=== PATIENT | female | born 1995 | race Caucasian/White ===

== ENCOUNTER 2016-06-21 11:51 | Emergency (ER) | payer SELFPAY ==
[2016-06-21 12:02] VITALS: BP 119/70
--- NOTE | 2016-06-21 12:02 | ER Document Report ---
ED Medical Screen (RME) - General Chief Complaint: Sore Throat Stated Complaint: SORE THROAT Time seen by provider: 12:01 Mode of Arrival: Ambulatory Information source: Patient Notes: 20-year-old female presents to ED for sore throat runny nose and cough for 2 days. States she has not taken her temperature so does not know she's had a fever. States she's had strep before. States she has body aches. Last menstrual period 05/31/2016 I have greeted and performed a rapid initial assessment of this patient. A comprehensive ED assessment and evaluation of the patient, analysis of test results and completion of medical decision making process will be conducted by an additional ED providers. TRAVEL OUTSIDE OF THE [place] IN LAST 30 DAYS: No - Related Data Allergies/Adverse Reactions: No Known Allergies Allergy (Verified 05/07/16 11:47) Past Medical History Pulmonary Medical History: Reports: Hx Pneumonia - Immunizations Immunizations up to date: No Hx Diphtheria, Pertussis, Tetanus Vaccination: No - unsure
[2016-06-21] MEDS ORDERED: ACETAMINOPHEN 325 MG TABLET PO ONE (12:35)
--- NOTE | 2016-06-21 12:35 | ER Document Report ---
HPI - HPI Patient complains to provider of: sore throat Pain Level: 5 Context: Patient is a 20-year-old female presents emergency Department complaining of sore throat, body aches and chills for the past 2 days. She admits to difficulty swallowing but able to do so. Denies any dyspnea or shortness of breath. Denies any foul odor drainage from her throat, speech or drooling. Denies any ear pressure but admits to minor nasal congestion and pain in her neck. Otherwise she denies any other cough or chest congestion, chest pain. Tolerating by mouth without any difficulty and without any difficulty Did not have a flu vaccine this year Does not have a primary care provider Denies any past medical or past surgical history Social history significant for half pack years. Denies any alcohol or drug use Denies any allergies to medications - REPRODUCTIVE Reproductive: DENIES: : - DERM Skin Color: Normal <GINA MONZON - Last Filed: 06/21/16 12:54> Past Medical History - General Information source: Patient - Social History Smoking Status: Unknown if Ever Smoked Family History: COPD, DM, Malignancy. denies: Arthritis, CAD, CVA, Hyperlipidemia, Hypertension, Thyroid Disfunction Patient has suicidal ideation: No Patient has homicidal ideation: No Pulmonary Medical History: Reports: Hx Pneumonia Renal/ Medical History: Denies: Hx Peritoneal Dialysis - Immunizations Immunizations up to date: No Hx Diphtheria, Pertussis, Tetanus Vaccination: No - unsure <GINA MONZON - Last Filed: 06/21/16 12:54> Vertical Provider Document - CONSTITUTIONAL Agree With Documented VS: Yes Exam Limitations: No Limitations General Appearance: WD/WN, No Apparent Distress - INFECTION CONTROL TRAVEL OUTSIDE OF THE [place] IN LAST 30 DAYS: No - HEENT HEENT: Atraumatic, Normocephalic, PERRLA, Pharyngeal Exudate, Pharyngeal Tenderness, Pharyngeal Erythema. negative: Tympanic Membrane Red, Tympanic Membrane Bulging - NECK Neck: Normal Inspection, Supple - RESPIRATORY Respiratory: Breath Sounds Normal, No Respiratory Distress, Chest Non-Tender O2 Sat by Pulse Oximetry: 96 - CARDIOVASCULAR Cardiovascular: Regular Rate, Regular Rhythm, No Murmur Pulses: Normal: Radial - MUSCULOSKELETAL/EXTREMETIES Musculoskeletal/Extremeties: MAEW, FROM, Non-Tender, No Edema - NEURO Level of Consciousness: Awake, Alert, Appropriate Motor/Sensory: No Motor Deficit, No Sensory Deficit - DERM Integumentary: Warm, Dry, No Rash <GINA MONZON - Last Filed: 06/21/16 12:54> Course - Re-evaluation Re-evalutation: 06/21/16 12:54 Patient is a 20-year-old female presents emergency room complaining of sore throat for the past 2 days. Evidence of pharyngeal erythema and exudates. Rapid strep came back positive. We'll be discharged home with by mouth amoxicillin and [facility]. - Vital Signs Vital signs: Temp Pulse Resp BP Pulse Ox 98.9 F 99 18 119/70 96 06/21/16 12:02 06/21/16 12:02 06/21/16 12:02 06/21/16 12:02 06/21/16 12:02 <GINA MONZON - Last Filed: 06/21/16 12:54> - Vital Signs Vital signs: Temp Pulse Resp BP Pulse Ox 98.9 F 99 18 119/70 96 06/21/16 12:02 06/21/16 12:02 06/21/16 12:02 06/21/16 12:02 06/21/16 12:58 <ODELL CASEY - Last Filed: 06/21/16 18:02> Discharge <GINA MONZON - Last Filed: 06/21/16 12:54> <ODELL CASEY - Last Filed: 06/21/16 18:02> - Discharge Clinical Impression: Strep pharyngitis Condition: Good Disposition: HOME, SELF-CARE Instructions: Strep Throat ([facility]) Prescriptions: Amoxicillin 500 mg PO BID 10 Days Forms: Return to Work Referrals: [facility] [NO LOCAL MD] - Follow up as needed
[2016-06-21] MEDS ORDERED: AMOXICILLIN TRIHYDRATE 500 MG CAPSULE PO ONE (12:54)
== END 2016-06-21 13:02 | disposition home or self-care (01) ==
LOC: ER 11:51
DX: J02.0 Streptococcal pharyngitis (principal); R68.83 Chills (without fever); R13.10 Dysphagia, unspecified; R09.81 Nasal congestion; M54.2 Cervicalgia
CPT/HCPCS: 36415; 86308; 87880; 99283

== ENCOUNTER 2016-10-06 15:32 | Emergency (ER) | payer SELFPAY ==
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
[2016-10-06] MEDS ORDERED: HYDROCODONE/ACETAMINOPHEN 5-325 MG TABLET PO ONE (21:23)
[2016-10-06 22:20] VITALS: BP 125/63
== END 2016-10-06 22:18 | disposition home or self-care (01) ==
LOC: ER 15:32
DX: S40.011A Contusion of right shoulder, initial encounter (principal); S43.101A Unspecified dislocation of right acromioclavicular joint, initial encounter; S00.83XA Contusion of other part of head, initial encounter; M54.5 Low back pain; R51 Headache; F17.200 Nicotine dependence, unspecified, uncomplicated; Y04.8XXA Assault by other bodily force, initial encounter
CPT/HCPCS: 99284; 81025; 73030; 70486; L3650

== ENCOUNTER 2016-10-20 16:00 | Emergency (ER) | payer SELFPAY ==
[2016-10-20] MEDS ORDERED: LIDOCAINE 1% INJ-PF (10 MG/ML) 30 ML SDV INJ ONE (17:15)
[2016-10-20] MEDS ORDERED: HYDROCODONE/ACETAMINOPHEN 5-325 MG TABLET PO ONE (17:15)
--- NOTE | 2016-10-20 17:16 | ER Document Report ---
HPI - HPI Patient complains to provider of: finger laceration Onset: This afternoon Onset/Duration: Sudden Quality of pain: Sharp Pain Level: 4 Context: Patient states she was washing dishes and accidentally cut her right second finger on a knife. Patient is right-hand dominant. Associated Symptoms: Other - Finger laceration Exacerbated by: Movement Relieved by: Denies Similar symptoms previously: No Recently seen / treated by doctor: No - ROS ROS below otherwise negative: Yes Systems Reviewed and Negative: Yes All other systems reviewed and negative - NEURO Neurology: DENIES: Weakness - GASTROINTESTINAL Gastrointestinal: DENIES: Nausea - REPRODUCTIVE Reproductive: DENIES: : - MUSCULOSKELETAL Musculoskeletal: REPORTS: Extremity pain - DERM Skin Color: Normal Skin Problems: Laceration Past Medical History - General Information source: Patient - Social History Smoking Status: Current Every Day Smoker Frequency of alcohol use: None Drug Abuse: None Occupation: food mixer Family History: COPD, DM, Malignancy. denies: Arthritis, CAD, CVA, Hyperlipidemia, Hypertension, Thyroid Disfunction Pulmonary Medical History: Reports: Hx Pneumonia Renal/ Medical History: Denies: Hx Peritoneal Dialysis Surgical Hx: Negative - Immunizations Immunizations up to date: Yes Hx Diphtheria, Pertussis, Tetanus Vaccination: Yes - 2014 [facility] Provider Document - CONSTITUTIONAL Agree With Documented VS: Yes Exam Limitations: No Limitations General Appearance: WD/WN, No Apparent Distress - INFECTION CONTROL TRAVEL OUTSIDE OF THE [place] IN LAST 30 DAYS: No - HEENT HEENT: Atraumatic, Normocephalic - NECK Neck: Normal Inspection - RESPIRATORY Respiratory: No Respiratory Distress O2 Sat by Pulse Oximetry: 99 - CARDIOVASCULAR Pulses: Normal: Radial - MUSCULOSKELETAL/EXTREMETIES Musculoskeletal/Extremeties: MAEW, FROM - NEURO Level of Consciousness: Awake, Alert, Appropriate Motor/Sensory: No Motor Deficit, No Sensory Deficit Notes: no obvious tendon deficit - DERM Integumentary: Warm, Dry, Laceration - 1.2 cm lac radial aspect of r 2nd finger Course - Vital Signs Vital signs: Temp Pulse Resp BP Pulse Ox 98.2 F 87 18 127/61 H 99 10/20/16 16:13 10/20/16 16:13 10/20/16 16:13 10/20/16 16:13 10/20/16 16:13 Procedures - Laceration/Wound Repair Right 2nd digit Wound length (cm): 1.2 Wound's Depth, Shape: Irregular Laceration pre-procedure: Other - chlorhexadine Anesthetic type: 1% Lidocaine Wound explored: Clean, No foreign body removed Wound Repaired With: Sutures Suture Size/Type: 5:0, Nylon Number of Sutures: 4 Layer Closure?: No Post-procedure wound care: Sterile dressing applied Post-procedure NV exam normal: Yes Complications: No Discharge - Discharge Clinical Impression: Finger laceration Qualifiers: Encounter type: initial encounter Qualified Code(s): S61.219A - Laceration without foreign body of unspecified finger without damage to nail, initial encounter Condition: Stable Disposition: HOME, SELF-CARE Instructions: Laceration Care ([facility]), Prophylactic Antibiotic ([facility]) Additional Instructions: return as needed for any new or worsening symptoms suture removal in 9 days follow up with your primary care provider as needed for a recheck Prescriptions: Cephalexin Monohydrate [Keflex 500 mg Capsule] 500 mg PO Q6H 5 Days Hydrocodone/Acetaminophen [[place] 5-325 Tablet] 1 each PO Q4 PRN #10 tablet PRN Reason: Forms: Return to Work Referrals: [facility] [Provider Group] - Follow up as needed
[2016-10-20 18:40] VITALS: BP 125/60
== END 2016-10-20 18:22 | disposition home or self-care (01) ==
LOC: ER 16:00
PROC: 0HQFXZZ Repair Right Hand Skin, External Approach (ICD-10-PCS; principal; 2016-10-20)
DX: S61.210A Laceration without foreign body of right index finger without damage to nail, initial encounter (principal); W26.0XXA Contact with knife, initial encounter; Y93.G1 Activity, food preparation and clean up; F17.200 Nicotine dependence, unspecified, uncomplicated
CPT/HCPCS: 12001; 99282; J3490

== ENCOUNTER 2017-03-19 12:16 | Emergency (ER) | payer SELFPAY ==
[2017-03-19 12:22] VITALS: BP 119/71
[2017-03-19] MEDS ORDERED: IBUPROFEN 800 MG TABLET PO ONE (12:59)
--- NOTE | 2017-03-19 13:04 | ER Document Report ---
ED Extremity Problem, Lower - General Chief Complaint: Knee Pain Stated Complaint: FALL/KNEE PAIN Time Seen by Provider: 03/19/17 12:51 Mode of Arrival: Ambulatory Information source: Patient Notes: 21-year-old female presents to ED for complaint of left knee pain after she fell last Monday. She states she put on her friend's shoes which were much heavier went down the steps and then fell in the yard landing on her knees. There are bruises to both knees with abrasion to the left knee. She states she has been working every day but the knee feels like it is still tight. She states she has been clear that the abrasive to put bacitracin on each day but has not been putting a dressing on insulin it would heal faster. Patient states her last tetanus shot was in 2014. TRAVEL OUTSIDE OF THE [place] IN LAST 30 DAYS: No - HPI Patient complains to provider of: Injury, Pain Location: Knee - Left knee Occurred: Other - Monday Where: Home, Outdoors Onset/Duration: Persistent Quality of pain: Achy, Pressure Severity: Mild Pain Level: 1 Context: Fell Recent injury: Yes Associated symptoms: Painful ambulation Exacerbated by: Movement, Walking Relieved by: Nothing - Related Data Allergies/Adverse Reactions: No Known Allergies Allergy (Verified 03/19/17 14:01) Past Medical History - General Information source: Patient - Social History Smoking Status: Current Every Day Smoker Cigarette use (# per day): Yes - 6-8 cigarettes a day Chew tobacco use (# tins/day): No Smoking Education Provided: Yes - Less than 1 minute Frequency of alcohol use: Rare Drug Abuse: None, Marijuana Occupation: [employer] Lives with: Family Family History: COPD, DM, Hypertension, Malignancy. denies: Arthritis, CAD, CVA , Hyperlipidemia, Thyroid Disfunction Patient has suicidal ideation: No Patient has homicidal ideation: No - Past Medical History Cardiac Medical History: Reports: None Pulmonary Medical History: Reports: None EENT Medical History: Reports: None Neurological Medical History: Reports: None Endocrine Medical History: Reports: None Renal/ Medical History: Reports: None Malignancy Medical History: Reports: None GI Medical History: Reports: None Musculoskeltal Medical History: Reports None Skin Medical History: Reports None Psychiatric Medical History: Reports: None Traumatic Medical History: Reports: None Infectious Medical History: Reports: None Past Surgical History: Reports: Hx Myringotomy - Immunizations Immunizations up to date: Yes Hx Diphtheria, Pertussis, Tetanus Vaccination: Yes - 2014 Review of Systems - Review of Systems Notes: Constitutional: [PRESENT: as per HPI. ABSENT: chills, fever(s), headache(s), weight gain, weight loss] Eyes: [ABSENT: visual disturbances] Ears: [ABSENT: hearing changes] Cardiovascular: [ABSENT: chest pain, dyspnea on exertion, edema, orthropnea, palpitations] Respiratory: [ABSENT: cough, hemoptysis] Gastrointestinal: [ABSENT: abdominal pain, constipation, diarrhea, hematemesis, hematochezia, nausea, vomiting] Genitourinary: [ABSENT: dysuria, hematuria] Musculoskeletal: [ABSENT: joint swelling] pain to the bilateral knees with bruises to bilateral knees and abrasion to the left knee Integumentary: [ABSENT: rash, wounds] bruising to bilateral knees abrasion to the left knee Neurological: [ABSENT: abnormal gait, abnormal speech, confusion, dizziness, focal weakness, syncope] Psychiatric: [ABSENT: anxiety, depression, homicidal ideation, suicidal ideation ] Endocrine: [ABSENT: cold intolerance, heat intolerance, menstrual abnormalities , polydipsia, polyuria] Hematologic/Lymphatic: [ABSENT: easy bleeding, easy bruising, lymphadenopathy] PHYSICAL EXAMINATION: GENERAL: Well-appearing, well-nourished and in no acute distress. HEAD: Atraumatic, normocephalic. EYES: Pupils equal round and reactive to light, extraocular movements intact, conjunctiva are normal. ENT: Nares patent, oropharynx clear without exudates. Moist mucous membranes. NECK: Normal range of motion, supple without lymphadenopathy LUNGS: Breath sounds clear to auscultation bilaterally and equal. No wheezes rales or rhonchi. HEART: Regular rate and rhythm without murmurs ABDOMEN: Soft, nontender, nondistended abdomen. No guarding, no rebound. No masses appreciated. Female : deferred Musculoskeletal: Normal range of motion, no pitting or edema. No cyanosis. Tenderness to bilateral knees with bruising to bilateral knees and abrasion to the left knee NEUROLOGICAL: Cranial nerves grossly intact. Normal speech, normal gait. Normal sensory, motor exams PSYCH: Normal mood, normal affect. SKIN: Warm, Dry, normal turgor, no rashes or lesions noted. Bruising to bilateral knees with abrasion to the left knee Physical Exam - Vital signs Vitals: Temp Pulse Resp BP Pulse Ox 98.0 F 100 18 119/71 96 03/19/17 12:21 03/19/17 12:21 03/19/17 12:21 03/19/17 12:21 03/19/17 12:21 Course - Re-evaluation Re-evalutation: 03/19/17 13:06 X-ray left knee due to continued pain and feeling tightness to the left knee. 03/19/17 13:44 X-ray today is negative no obvious bony injuries. No evidence of swelling or edema on the x-ray no effusion. Will treat patient with ibuprofen and Dariel wrap and have patient follow-up with orthopedics for continued pain in the knee. - Vital Signs Vital signs: Temp Pulse Resp BP Pulse Ox 98.0 F 100 18 119/71 96 03/19/17 12:21 03/19/17 12:21 03/19/17 12:21 03/19/17 12:21 03/19/17 12:21 - Diagnostic Test Radiology reviewed: Image reviewed, Reports reviewed Discharge - Discharge Clinical Impression: Bilateral knee contusions, Abrasion, left knee, initial encounter Condition: Stable Disposition: HOME, SELF-CARE Instructions: Knee Exercise Program ([facility]) Additional Instructions: SUSPECTED INTERNAL KNEE INJURY: The examiner of your injured knee suspects an internal injury to the cartilage or internal ligaments. This must be further investigated by an supply chain specialist. The knee should be protected, ice packed, and elevated while awaiting your follow-up exam by the orthopedist. If there is severe swelling, severe pain, or any new symptoms while awaiting your exam, you should call the orthopedist. (If he/she is unavailable, call us or return for re-examination.) DARIEL WRAP: A compression dressing (dariel wrap) has been placed. This helps hold the area still. It limits swelling and internal bleeding. The wrap should be comfortably snug -- not tight. You should feel a sense of pressure, but not severe pain under the wrap. Unless the physician tells you otherwise, you can adjust the wrap for comfort. If the wrap causes symptoms suggesting it's too tight -- uncomfortable pressure, swelling or discoloration beyond the wrap, numbness, or severe pain - - you must loosen the wrap. If these symptoms don't resolve promptly, return for re-evaluation. ICE & ELEVATION: Apply ice packs frequently against the painful area. Many different schedules are recommended, such as "20 minutes on, 20 minutes off" or "one hour ice, two hours rest." If you need to work, you may need to go longer between ice treatments. You should plan to have the area ice packed AT LEAST one- fourth of the time. The ice should be applied over the wrap, tape, or splint, or over a layer of cloth -- not directly against the skin. Some ice bags have a built-in cloth and can be put directly on the skin. Your injured part should be elevated as much as possible over the next 48 hours. Try to keep the injury above the level of the heart. Avoid use of the injured area. Elevation and rest will decrease the swelling. USE OF [id number] IBUPROFEN: Ibuprofen (Advil, Nuprin, Medipren, Motrin IB) is a medication for fever and pain control. In addition, it has anti- inflammatory effects which may be beneficial, especially in the treatment of injuries. It's best to take ibuprofen with food. Persons with ulcer disease or allergy to aspirin should notify their physician of this before taking ibuprofen. Ibuprofen can be given every four to six hours, for a total of four doses daily. Age Pain or fever dose Antiinflammatory dose 6-8 yr 200 mg (1 tab) 200 mg (1 tab) 9-11 yr 200 mg (1 tab) 200-400 mg (1-2 tab) 11-14 yr 200-400 mg (1-2 tab) 400 mg (2 tab) 15-adult 400 mg (2 tab) 600 mg (3 tab) FOLLOW-UP CARE: If you have been referred to a physician for follow-up care, call the physician s office for an appointment as you were instructed or within the next two days. If you experience worsening or a significant change in your symptoms, notify the physician immediately or return to the Emergency Department at any time for re-evaluation. Forms: Smoking Cessation Education, Return to Work Referrals: AUGUSTIN MEDINA MD [ACTIVE STAFF] - Follow up as needed
--- NOTE | 2017-03-19 13:39 | RADIOLOGY REPORT (SQ) ---
EXAM DESCRIPTION: KNEE LEFT 4 VIEW COMPLETED DATE/TIME: 03/19/2017 1:15 pm REASON FOR STUDY: pain and injury COMPARISON: None. NUMBER OF VIEWS: Four views. TECHNIQUE: AP, lateral, and both oblique radiographic images acquired of the left knee. LIMITATIONS: None. FINDINGS: MINERALIZATION: Normal. BONES: No acute fracture or dislocation. No worrisome bone lesions. JOINT: No effusion. SOFT TISSUES: No soft tissue swelling. No radio-opaque foreign body. OTHER: No other significant finding. IMPRESSION: NEGATIVE STUDY OF THE LEFT KNEE. NO RADIOGRAPHIC EVIDENCE OF ACUTE INJURY. TECHNICAL DOCUMENTATION: JOB ID: [id number] [employer]- All Rights Reserved
== END 2017-03-19 14:00 | disposition home or self-care (01) ==
LOC: ER 12:16
DX: S80.02XA Contusion of left knee, initial encounter (principal); S80.01XA Contusion of right knee, initial encounter; M25.562 Pain in left knee; W19.XXXA Unspecified fall, initial encounter; Y92.007 Garden or yard of unspecified non-institutional (private) residence as the place of occurrence of the external cause; F17.210 Nicotine dependence, cigarettes, uncomplicated; Z71.6 Tobacco abuse counseling
CPT/HCPCS: 99283

== ENCOUNTER 2019-03-13 23:58 | Emergency (ER) | payer SELFPAY ==
[2019-03-14] MEDS ORDERED: ACETAMINOPHEN 325 MG TABLET PO ONE (00:38)
--- NOTE | 2019-03-14 01:43 | ER Document Report ---
HPI - HPI Patient complains to provider of: Left ear pain Time Seen by Provider: 03/14/19 00:35 Pain Level: 3 Context: Patient is otherwise healthy 23-year-old female presents to the emergency department for left ear pain. States she has had a generalized cough and congestion for the last 48 hours. States this evening she continues with left ear pain and cannot sleep. Patient's denying any recent swimming episodes or drainage from bilateral ears. Patient is denying any headache, neck pain, rash, fever. - EENT EENT: REPORTS: Ear Pain - bilateral. DENIES: Sore Throat - NEURO Neurology: DENIES: Headache, Weakness, Vision blurred, Dizzinesss / Vertigo - GASTROINTESTINAL Gastrointestinal: DENIES: Abdominal Pain, Black / Bloody Stools - URINARY Urinary: DENIES: Dysuria, Urgency, Frequency - REPRODUCTIVE LMP: 2 wks ago Reproductive: DENIES: : - MUSCULOSKELETAL Musculoskeletal: DENIES: Extremity pain Past Medical History - General Information source: Patient - Social History Smoking Status: Current Some Day Smoker Family History: COPD, DM, Hypertension, Malignancy. denies: Arthritis, CAD, CVA, Hyperlipidemia, Thyroid Disfunction Patient has suicidal ideation: No Patient has homicidal ideation: No Pulmonary Medical History: Reports: Hx Pneumonia Renal/ Medical History: Denies: Hx Peritoneal Dialysis Past Surgical History: Reports: Hx Myringotomy - Immunizations Immunizations up to date: Yes Hx Diphtheria, Pertussis, Tetanus Vaccination: Yes - 2014 Vertical Provider Document - CONSTITUTIONAL Agree With Documented VS: Yes Notes: GENERAL: Alert, interacts well. No acute distress. HEAD: Normocephalic, atraumatic. EYES: Pupils equal, round, and reactive to light. Extraocular movements intact. ENT: Oral mucosa moist, tongue midline. Nares patent, no nasal septal hematoma, right TM within normal limits, left TM erythematous and bulging. Bilateral canals within normal limits, no tragal tenderness noted bilaterally, no mastoid erythema or tenderness noted bilaterally. Pharynx within normal limits no palatal petechiae noted. NECK: Full range of motion. Supple. Trachea midline. No lymphadenopathy appreciated LUNGS: Clear to auscultation bilaterally, no wheezes, rales, or rhonchi. No respiratory distress. HEART: Regular rate and rhythm. No murmur ABDOMEN: Soft, non-tender. Non-distended. Bowel sounds present in all 4 quadrants. EXTREMITIES: Moves all 4 extremities spontaneously. No edema, normal radial and dorsalis pedis pulses bilaterally. No cyanosis. BACK: no cervical, thoracic, lumbar midline tenderness. No saddle anesthesia, normal distal neurovascular exam. NEUROLOGICAL: Alert and oriented x3. Normal speech. cranial nerves II through XII grossly intact PSYCH: Normal affect, normal mood. SKIN: Warm, dry, normal turgor. No rashes or lesions noted. - INFECTION CONTROL TRAVEL OUTSIDE OF THE [place] IN LAST 30 DAYS: No Course - Re-evaluation Re-evalutation: 03/14/19 01:41 Patient's physical exam is consistent with otitis media. Will treat appropriately. Discussed close follow-up with primary care provider and return precautions. Patient stable for discharge. - Vital Signs Vital signs: Temp Pulse Resp BP Pulse Ox 98.2 F 93 16 147/72 H 100 03/14/19 00:05 03/14/19 00:05 03/14/19 00:05 03/14/19 00:05 03/14/19 00:05 Discharge - Discharge Clinical Impression: Left otitis media Qualifiers: Otitis media type: unspecified Qualified Code(s): H66.92 - Otitis media, unspecified, left ear Condition: Stable Disposition: HOME, SELF-CARE Instructions: Otitis Media ([facility]) Additional Instructions: As we discussed you have been seen and treated in the emergency department for an ear infection. Please take antibiotics as prescribed. Please also make sure you take [id number] Tylenol or Motrin for generalized pain. Please follow-up with your primary care provider in the next 12 to 24 hours. Return to the emergency room for any concerns. Prescriptions: Amoxicillin Trihydrate [Amoxil 500 mg Capsule] 500 mg PO BID 7 Days capsule Forms: Return to Work
[2019-03-14] MEDS ORDERED: AMOXICILLIN TRIHYDRATE 500 MG CAPSULE PO ONE (01:44)
[2019-03-14 01:54] VITALS: BP 129/79
== END 2019-03-14 01:54 | disposition home or self-care (01) ==
LOC: ER 23:58
DX: H66.92 Otitis media, unspecified, left ear (principal); H92.03 Otalgia, bilateral; R05 Cough; F17.200 Nicotine dependence, unspecified, uncomplicated; Z87.01 Personal history of pneumonia (recurrent)
CPT/HCPCS: 99282